=== PATIENT | male | born 1940 | race Caucasian/White ===

== ENCOUNTER 2018-05-06 15:55 | Emergency (ER) | payer MEDICARE, OTHER ==
[~2018-05-06] VITALS: Ht 182.9 cm; Wt 67.8 kg
[2018-05-06] MEDS ORDERED: morphine 4 MG/ML inj SYRINge IV ONE ×2 (16:15→18:25)
[2018-05-06] MEDS ORDERED: normal saline 1000ML IV soln IVB ONE ×2 (16:15→18:25)
[2018-05-06] MEDS ORDERED: ondansetron/PF 4mg/2ml inj IV ONE (16:15)
[2018-05-06 16:19] LABS: BASOPHILS % (AUTO) 0.3 % (0-1); EOSINOPHILS # (AUTO) 0.1 X10'3 (0-0.9); EOSINOPHILS % (AUTO) 1.4 % (0-6); HEMATOCRIT 41.9 % (42.0-52.0); HEMOGLOBIN 13.9 g/dl (14.0-17.9); LYMPHOCYTES # (AUTO) 1.3 X10'3 (1.1-4.8); LYMPHOCYTES % (AUTO) 12.9 % (21-51); MEAN CORPUSCULAR HEMOGLOBIN 28.2 PG (27.0-31.0); MEAN CORPUSCULAR HGB CONC 33.2 % (33.0-36.5); MEAN CORPUSCULAR VOLUME 85.1 FL (78-98); MEAN PLATELET VOLUME 6.6 FL (7.4-10.4); MONOCYTES # (AUTO) 0.9 X10'3 (0-0.9); MONOCYTES % (AUTO) 9.1 % (2-12); NEUTROPHILS # (AUTO) 7.8 X10'3 (1.8-7.7); NEUTROPHILS % (AUTO) 76.3 % (42-75); PLATELET COUNT 230 X10'3 (140-440); RED BLOOD COUNT 4.92 X10'6 (4.70-6.10); RED CELL DISTRIBUTION WIDTH 14.2 % (11.5-14.5); WHITE BLOOD COUNT 10.2 X10'3 (4.5-11.0)
[2018-05-06 16:32] LABS: PROTHROMBIN TIME 9.9 SECONDS (9.0-12.0)
[2018-05-06 16:33] LABS: ALANINE AMINOTRANSFERASE 34 U/L (12-78); ALBUMIN 3.7 G/DL (3.4-5.0); ALBUMIN/GLOBULIN RATIO 1.1 (1.1-1.5); ALKALINE PHOSPHATASE 88 IU/L (46-116); ANION GAP 10 (8-16); ASPARTATE AMINO TRANSFERASE 20 U/L (10-37); BILIRUBIN,TOTAL 0.6 MG/DL (0.1-1.0); BLOOD UREA NITROGEN 21 MG/DL (7-18); BUN/CREATININE RATIO 11.9 (5.4-32.0); CALCIUM 8.8 MG/DL (8.5-10.1); CHLORIDE 105 MMOL/L (99-107); CREATININE 1.77 MG/DL (0.60-1.10); GLUCOSE 85 MG/DL (70-104); LIPASE 63 U/L (73-393); POTASSIUM 3.9 MMOL/L (3.5-5.1); SODIUM 142 MMOL/L (135-145); TOTAL CARBON DIOXIDE 26.6 MMOL/L (24-32); TOTAL PROTEIN 7.1 G/DL (6.4-8.2); eGFR 37 ML/MIN
[2018-05-06 18:18] LABS: CLARITY,URINE CLEAR (Clear); COLOR,URINE YELLOW (Yellow); GLUCOSE, URINE NEGATIVE (Neg); KETONES,URINE 15 mg/dl (Neg); LEUKOCYTE ESTERASE ,URINE NEGATIVE (Neg); NITRITES, URINE NEGATIVE (Neg); OCCULT BLOOD,URINE TRACE-INTACT (Neg); PROTEIN,URINE NEGATIVE (Neg); UROBILINOGEN,URINE 0.2 E.U/dL (0.2-1.0)
[2018-05-06 18:26] LABS: UA COLLECTION TYPE CLN CATCH MIDSTREAM
[2018-05-06 18:27] LABS: BACTERIA,URINE FEW /HPF (Neg); RBC,URINE 0-2 /HPF (0-2); SQUAMOUS EPITHELIAL CELL,UR FEW /LPF (FEW); WBC,URINE NONE SEEN /HPF (0-4)
[2018-05-06] MEDS ORDERED: HYDR-4353 PO (20:04)
[2018-05-06 20:24] VITALS: BP 132/65
== END 2018-05-06 20:25 | disposition home or self-care (01) ==
LOC: ER 15:55
DX: N20.0 Calculus of kidney (principal); R11.2 Nausea with vomiting, unspecified; E78.00 Pure hypercholesterolemia, unspecified; I10 Essential (primary) hypertension; G89.29 Other chronic pain; Z87.442 Personal history of urinary calculi
CPT/HCPCS: 36415; 74176; 80053; 81001; 83690; 85025; 85610; 96361; 96374; 96375; 96376; 99284; J2270; J2405; J7030

== ENCOUNTER 2018-06-03 19:53 | Emergency (ER) | payer MEDICARE, OTHER ==
[~2018-06-03] VITALS: Ht 182.9 cm; Wt 89.0 kg
[~2018-06-03 19:53] MED LIST: HYDR-4353 PO
[2018-06-03 20:35] LABS: CLARITY,URINE CLEAR (Clear); COLOR,URINE YELLOW (Yellow); GLUCOSE, URINE NEGATIVE (Neg); KETONES,URINE 15 mg/dl (Neg); NITRITES, URINE NEGATIVE (Neg); OCCULT BLOOD,URINE SMALL (Neg); PH,URINE 5.5 (4.8-8.0); PROTEIN,URINE TRACE mg/dl (Neg); UA COLLECTION TYPE CLN CATCH MIDSTREAM; UROBILINOGEN,URINE 0.2 E.U/dL (0.2-1.0)
[2018-06-03 20:36] LABS: LEUKOCYTE ESTERASE ,URINE NEGATIVE (Neg)
[2018-06-03 20:37] LABS: BACTERIA,URINE NONE SEEN /HPF (Neg); RBC,URINE 0-2 /HPF (0-2); SQUAMOUS EPITHELIAL CELL,UR FEW /LPF (FEW); WBC,URINE 0-4 /HPF (0-4)
[2018-06-03] MEDS ORDERED: ondansetron/PF 4mg/2ml inj IV ONE ×2 (20:45→22:20)
[2018-06-03] MEDS ORDERED: normal saline 1000ML IV soln IVB ONE ×2 (20:45→22:20)
[2018-06-03] MEDS ORDERED: ketorolac trometh. 30mg/ml inj. IV ONE (20:45)
[2018-06-03] MEDS ORDERED: morphine 4 MG/ML inj SYRINge IV PRN (20:45)
[2018-06-03 20:50] LABS: BASOPHILS % (AUTO) 0.4 % (0-1); EOSINOPHILS # (AUTO) 0.1 X10'3 (0-0.9); EOSINOPHILS % (AUTO) 0.7 % (0-6); HEMATOCRIT 41.6 % (42.0-52.0); HEMOGLOBIN 13.7 g/dl (14.0-17.9); LYMPHOCYTES # (AUTO) 0.9 X10'3 (1.1-4.8); LYMPHOCYTES % (AUTO) 10.5 % (21-51); MEAN CORPUSCULAR HEMOGLOBIN 28.1 PG (27.0-31.0); MEAN CORPUSCULAR HGB CONC 32.9 % (33.0-36.5); MEAN CORPUSCULAR VOLUME 85.5 FL (78-98); MEAN PLATELET VOLUME 6.6 FL (7.4-10.4); MONOCYTES # (AUTO) 0.7 X10'3 (0-0.9); MONOCYTES % (AUTO) 8.3 % (2-12); NEUTROPHILS # (AUTO) 7.3 X10'3 (1.8-7.7); NEUTROPHILS % (AUTO) 80.1 % (42-75); PLATELET COUNT 205 X10'3 (140-440); RED BLOOD COUNT 4.87 X10'6 (4.70-6.10); RED CELL DISTRIBUTION WIDTH 12.9 % (11.5-14.5)
[2018-06-03 20:58] LABS: ALANINE AMINOTRANSFERASE 37 U/L (12-78); ALBUMIN 3.7 G/DL (3.4-5.0); ALBUMIN/GLOBULIN RATIO 1.1 (1.1-1.5); ALKALINE PHOSPHATASE 91 IU/L (46-116); ANION GAP 12 (8-16); ASPARTATE AMINO TRANSFERASE 19 U/L (10-37); BLOOD UREA NITROGEN 19 MG/DL (7-18); BUN/CREATININE RATIO 11.4 (5.4-32.0); CALCIUM 8.5 MG/DL (8.5-10.1); CHLORIDE 103 MMOL/L (99-107); CREATININE 1.66 MG/DL (0.60-1.10); GLUCOSE 120 MG/DL (70-104); LIPASE 277 U/L (73-393); SODIUM 141 MMOL/L (135-145); TOTAL CARBON DIOXIDE 26.5 MMOL/L (24-32); TOTAL PROTEIN 7.2 G/DL (6.4-8.2); eGFR 40 ML/MIN
[2018-06-03] MEDS: morphine 10mg/ml inj. IV PRN ×2 (21:05→23:39)
[2018-06-03 21:14] LABS: PROTHROMBIN TIME 10.1 SECONDS (9.0-12.0)
--- NOTE | 2018-06-03 21:38 | NUR ---
Patient is A&O x4, HERNÁNDEZ and is appropriate and is HH. He has a history of kidneystones, but has not been able to have a procedure due to blood thinners.
[2018-06-03] MEDS ORDERED: methylnaltrexone br 12mg/0.6ml inj***SubQ only SQ ONE (21:50)
[2018-06-03] MEDS ORDERED: morphine 10mg/ml inj. IV ONE (22:20)
--- NOTE | 2018-06-03 23:55 | NUR ---
Patient is nauseous and dry heaving, I just gave him Zofran 4mg. I will continue to monitor.
[2018-06-04] MEDS: morphine 10mg/ml inj. IV PRN (00:21)
[2018-06-04 00:49] VITALS: BP 146/75
== END 2018-06-04 00:52 | disposition home or self-care (01) ==
LOC: ER 19:54
DX: N20.0 Calculus of kidney (principal); N23 Unspecified renal colic; E78.00 Pure hypercholesterolemia, unspecified; G89.29 Other chronic pain; R11.2 Nausea with vomiting, unspecified; I12.9 Hypertensive chronic kidney disease with stage 1 through stage 4 chronic kidney disease, or unspecified chronic kidney disease; N18.9 Chronic kidney disease, unspecified; Z95.5 Presence of coronary angioplasty implant and graft; Z98.890 Other specified postprocedural states; Z88.1 Allergy status to other antibiotic agents
CPT/HCPCS: 36415; 74018; 76775; 80053; 81001; 83690; 85025; 85610; 96361; 96372; 96374; 96375; 96376; 99284; J1885; J2270; J2405; J7030

== ENCOUNTER 2019-10-09 12:49 | Outpatient (CLI) | payer MEDICARE, OTHER | END 2019-10-09 23:59 | disposition home or self-care (01) | LOC: RAD 12:49 | PROVIDERS: ATTEND Dietitian, Registered | DX: I10 Essential (primary) hypertension (principal); E78.5 Hyperlipidemia, unspecified; R13.10 Dysphagia, unspecified | CPT/HCPCS: 74230 ==

== ENCOUNTER 2020-06-30 22:31 | Observation (INO) | payer MEDICARE, OTHER ==
[~2020-06-30] VITALS: Ht 182.9 cm; Wt 86.4 kg
[~2020-06-30 22:31] MED LIST changes: +ACET-2319 PO; +AMLO10TA48 PO; +FAMO40TA58 PO; -HYDR-4353 PO; +IRON118L2 PO; +LOSA50TA64 PO; +MULT-687 PO; +NITR0.4T51 SL; +PANT40TA54 PO; +ROSU10TA2 PO; +SILD50TA PO; +TEST5GEL2 TOP; +TRAZ-251 PO; +temazepam 15mg capsule PO PRN
[2020-06-30 22:46] LABS: BASOPHILS # (AUTO) 0.1 X10'3 (0-0.2); BASOPHILS % (AUTO) 1.2 % (0-1); EOSINOPHILS # (AUTO) 0.2 X10'3 (0-0.9); EOSINOPHILS % (AUTO) 2.6 % (0-6); HEMATOCRIT 34.6 % (42.0-52.0); HEMOGLOBIN 11.7 g/dl (14.0-17.9); LYMPHOCYTES # (AUTO) 1.8 X10'3 (1.1-4.8); MEAN CORPUSCULAR HEMOGLOBIN 28.8 PG (27.0-31.0); MEAN CORPUSCULAR HGB CONC 33.9 g/dL (33.0-36.5); MEAN PLATELET VOLUME 6.6 FL (7.4-10.4); MONOCYTES # (AUTO) 0.7 X10'3 (0-0.9); MONOCYTES % (AUTO) 10.3 % (2-12); NEUTROPHILS # (AUTO) 4.4 X10'3 (1.8-7.7); NEUTROPHILS % (AUTO) 60.9 % (42-75); PLATELET COUNT 203 X10'3 (140-440); RED BLOOD COUNT 4.07 X10'6 (4.70-6.10); RED CELL DISTRIBUTION WIDTH 13.7 % (11.5-14.5); WHITE BLOOD COUNT 7.1 X10'3 (4.5-11.0)
[2020-06-30] MEDS ORDERED: fentaNYL/PF 50MCG/1 ML 2ML syringe IV ONE (22:55)
[2020-06-30 23:01] LABS: ALANINE AMINOTRANSFERASE 32 U/L (12-78); ALBUMIN 3.6 G/DL (3.4-5.0); ALBUMIN/GLOBULIN RATIO 1.2 (1.1-1.5); ALKALINE PHOSPHATASE 75 IU/L (46-116); ANION GAP 8 (8-16); ASPARTATE AMINO TRANSFERASE 15 U/L (10-37); BILIRUBIN,TOTAL 0.4 MG/DL (0.1-1.0); BLOOD UREA NITROGEN 22 MG/DL (7-18); BUN/CREATININE RATIO 11.8 (5.4-32.0); CALCIUM 8.5 MG/DL (8.5-10.1); CHLORIDE 110 MMOL/L (99-107); CREATININE 1.86 MG/DL (0.60-1.10); GLUCOSE 103 MG/DL (70-104); SODIUM 144 MMOL/L (135-145); TOTAL CARBON DIOXIDE 26.2 MMOL/L (24-32); TOTAL PROTEIN 6.7 G/DL (6.4-8.2); eGFR 35 ML/MIN
--- NOTE | 2020-06-30 23:15 | NUR ---
PT TO CT
[2020-06-30] MEDS ORDERED: PANT-47 PO (23:26)
[2020-06-30] MEDS ORDERED: TEST1.257 TOP (23:26)
[2020-06-30] MEDS ORDERED: [UNRECOGNIZED DRUG - CODE] PO (23:26)
[2020-06-30] MEDS ORDERED: CLOP75TA34 PO (23:26)
[2020-06-30] MEDS ORDERED: BIFI4CAP PO (23:26)
[2020-06-30] MEDS ORDERED: LOSA50TA64 PO (23:26)
[2020-06-30] MEDS ORDERED: ASPI-611 PO (23:26)
--- NOTE | 2020-06-30 23:27 | NUR ---
Pt back from ct
[2020-06-30] MEDS ORDERED: acetaminophen 325mg tablet PO PRN ×2 (23:40)
[2020-06-30] MEDS ORDERED: mag hydrox/Alum hydrox/simeth 30ml oral suspension PO PRN (23:40)
[2020-06-30] MEDS ORDERED: magnesium hydroxide 30ml (MOM) UD suspension PO PRN (23:40)
[2020-06-30] MEDS ORDERED: potassium Cl 20 mEq SR tablet PO PRN ×2 (23:40)
[2020-06-30] MEDS ORDERED: nitroGLYCERIN 0.4mg SUBLingual tab SL PRN ×2 (23:40)
[2020-06-30] MEDS ORDERED: metoprolol tartrate 1mg/ml inj IV PRN (23:40)
[2020-06-30] MEDS ORDERED: magnesium 4gm in 100ml NS 100 ML IV PRN (23:40)
[2020-06-30] MEDS ORDERED: magnesium Cl slow-release 64mg tablet PO PRN (23:40)
[2020-06-30] MEDS ORDERED: potassium Cl 40MEQ/1/2NS 520ml 520 ML IV PRN ×2 (23:40)
[2020-06-30] MEDS ORDERED: aminophylline 250mg/10ml inj. IV PRN (23:40)
[2020-06-30] MEDS ORDERED: bisacodyl 10mg suppository rectal RC PRN (23:40)
[2020-06-30] MEDS ORDERED: HYDROcodone/acetaminophen 10/325mg tab PO PRN (23:40)
[2020-06-30] MEDS ORDERED: ondansetron/PF 4mg/2ml inj IV PRN (23:40)
[2020-06-30] MEDS ORDERED: magnesium 2GM in 50ml NS 50 ML IV PRN (23:40)
[2020-06-30] MEDS ORDERED: regadenoson 0.4mg/5ml syringe IV PRN (23:40)
[2020-06-30] MEDS ORDERED: morphine 2 MG/ML inj. syringe IV PRN ×2 (23:40)
[2020-06-30] MEDS ORDERED: HYDROcodone/acetaminophen 5mg/325mg tablet PO PRN (23:40)
[2020-07-01] MEDS ORDERED: fentaNYL/PF 50MCG/1 ML 2ML syringe IV ONE
[2020-07-01] MEDS: normal saline 1000ml 1,000 ML IV SCH ×2 (00:01→07:29)
[2020-07-01] MEDS ORDERED: nitroGLYCERIN 0.4mg SUBLingual tab SL PRN (02:10)
[2020-07-01 04:44] LABS: ALBUMIN 3.2 G/DL (3.4-5.0); ANION GAP 9 (8-16); BLOOD UREA NITROGEN 23 MG/DL (7-18); BUN/CREATININE RATIO 13.9 (5.4-32.0); CALCIUM 7.6 MG/DL (8.5-10.1); CHLORIDE 113 MMOL/L (99-107); CHOL/HDL RATIO 2.5 (0.00-4.99); CHOLESTEROL 121 MG/DL (0-200); CREATININE 1.66 MG/DL (0.60-1.10); GLUCOSE 90 MG/DL (70-104); HDL CHOLESTEROL 49 MG/DL (35-60); LDL CHOLESTEROL 61 MG/DL (50-100); MAGNESIUM 2.1 MG/DL (1.5-2.4); SODIUM 146 MMOL/L (135-145); TOTAL CARBON DIOXIDE 24.5 MMOL/L (24-32); TRIGLYCERIDES 55 MG/DL (20-135); eGFR 40 ML/MIN
--- NOTE | 2020-07-01 06:49 | NUR ---
patient on bed awake,denies chest pain at this time,call light within reach,appears comfortable on a hospital bed.Vital signs rechecked.We will monitor.
--- NOTE | 2020-07-01 07:29 | NUR ---
PATIENT REFUSED TO TAKE ALL MORNING MEDS,REPORTS HE TAKES EVERYTHING AT NIGHT,CALLED PHARMACIST ALESIA AND REQUESTED TO RETIME MEDS.
[2020-07-01] MEDS ORDERED: pantoprazole 40mg Tablet.DR PO SCH (08:00)
[2020-07-01] MEDS ORDERED: enoxaparin 40mg/0.4ml syringe SUBCUT SCH (08:00)
[2020-07-01] MEDS ORDERED: clopidogrel 75mg tablet PO SCH ×2 (08:00→21:00)
[2020-07-01] MEDS ORDERED: losartan 50mg tablet PO SCH (08:00)
[2020-07-01] MEDS ORDERED: aspirin 81mg tablet.DR PO SCH ×2 (08:00→21:00)
[2020-07-01] MEDS ORDERED: K and/or MAG REPLACEMENT MC SCH (08:00)
[2020-07-01 10:59] LABS: HEMATOCRIT 35.5 % (42.0-52.0); HEMOGLOBIN 11.8 g/dl (14.0-17.9); MEAN CORPUSCULAR HEMOGLOBIN 28.7 PG (27.0-31.0); MEAN CORPUSCULAR HGB CONC 33.3 g/dL (33.0-36.5); MEAN CORPUSCULAR VOLUME 86.2 FL (78-98); MEAN PLATELET VOLUME 6.7 FL (7.4-10.4); PLATELET COUNT 193 X10'3 (140-440); RED BLOOD COUNT 4.12 X10'6 (4.70-6.10); RED CELL DISTRIBUTION WIDTH 13.7 % (11.5-14.5); WHITE BLOOD COUNT 6.8 X10'3 (4.5-11.0)
--- NOTE | 2020-07-01 11:17 | NUR ---
called nuc med stress test cancelled last night.
--- NOTE | 2020-07-01 14:50 | NUR ---
Dr. Michael at bedside,ordered to gait test patient for possible dc.
--- NOTE | 2020-07-01 15:01 | NUR ---
Patient passed gait test 150 feet,95% RA,demetria salas,paged Dr. Michael.
--- NOTE | 2020-07-01 16:00 | NUR ---
DISCHARGE ROUTINE NOTED,DC PAPER PRINTED.
[2020-07-01 16:11] VITALS: BP 137/63
[2020-07-01] MEDS ORDERED: traZODone 50mg tablet PO SCH (21:00)
[2020-07-01] MEDS ORDERED: amLODIPine 5mg tablet PO SCH (21:00)
[2020-07-01] MEDS ORDERED: atorvastatin 20mg tablet PO SCH (21:00)
== END 2020-07-01 16:12 | disposition home or self-care (01) ==
LOC: ER 22:32 → UNDOADMIN 23:40 → ED HOLD 23:40 → UNDODISIN 07-01 16:12
PROVIDERS: ADMIT Family Medicine; ATTEND Family Medicine
DX: R07.89 Other chest pain (principal); I25.10 Atherosclerotic heart disease of native coronary artery without angina pectoris; I12.9 Hypertensive chronic kidney disease with stage 1 through stage 4 chronic kidney disease, or unspecified chronic kidney disease; N18.30 Chronic kidney disease, stage 3 unspecified; E78.5 Hyperlipidemia, unspecified; N20.0 Calculus of kidney; E78.00 Pure hypercholesterolemia, unspecified; G89.29 Other chronic pain; K21.9 Gastro-esophageal reflux disease without esophagitis; Z85.038 Personal history of other malignant neoplasm of large intestine; Z95.5 Presence of coronary angioplasty implant and graft; Z90.49 Acquired absence of other specified parts of digestive tract; Z79.82 Long term (current) use of aspirin; Z79.899 Other long term (current) drug therapy; Z88.1 Allergy status to other antibiotic agents
CPT/HCPCS: 36415; 71045; 71046; 71250; 80048; 80053; 80061; 83735; 83880; 84484; 85025; 85027; 93005; 96361; 96372; 96374; 99285; G0378; J2270; J7030; J1650

== ENCOUNTER 2021-10-29 07:55 | Day surgery (SDC) | payer MEDICARE, OTHER ==
[2021-10-29] VITALS (9 sets, daily range): BP systolic 115–149; BP diastolic 51–82
[~2021-10-29] VITALS: Ht 182.9 cm; Wt 87.9 kg
[~2021-10-29 07:55] MED LIST changes: -ACET-2319 PO; +ASPI-611 PO; +BIFI4CAP PO; +CLOP75TA34 PO; -FAMO40TA58 PO; -IRON118L2 PO; +PANT-47 PO; -PANT40TA54 PO; +TEST1.257 TOP; +[UNRECOGNIZED DRUG - CODE] PO; -temazepam 15mg capsule PO PRN
[2021-10-29] MEDS ORDERED: normal saline 1,000 ML IV SCH (08:30)
[2021-10-29] MEDS ORDERED: diphenhydrAMINE 25mg capsule PO PRN (08:30)
[2021-10-29] MEDS ORDERED: ROSU40TA PO (09:04)
[2021-10-29 09:08] LABS: BASOPHILS # (AUTO) 0.1 X10'3 (0-0.2); BASOPHILS % (AUTO) 1.1 % (0-1); EOSINOPHILS # (AUTO) 0.1 X10'3 (0-0.9); EOSINOPHILS % (AUTO) 1.6 % (0-6); HEMATOCRIT 35.4 % (42.0-52.0); HEMOGLOBIN 11.9 g/dl (14.0-17.9); LYMPHOCYTES # (AUTO) 1.2 X10'3 (1.1-4.8); LYMPHOCYTES % (AUTO) 20.6 % (21-51); MEAN CORPUSCULAR HEMOGLOBIN 28.1 PG (27.0-31.0); MEAN CORPUSCULAR HGB CONC 33.7 g/dL (33.0-36.5); MEAN CORPUSCULAR VOLUME 83.4 FL (78-98); MEAN PLATELET VOLUME 6.7 FL (7.4-10.4); MONOCYTES # (AUTO) 0.5 X10'3 (0-0.9); MONOCYTES % (AUTO) 8.1 % (2-12); NEUTROPHILS # (AUTO) 4.1 X10'3 (1.8-7.7); NEUTROPHILS % (AUTO) 68.6 % (42-75); PLATELET COUNT 241 X10'3 (140-440); RED BLOOD COUNT 4.24 X10'6 (4.70-6.10); RED CELL DISTRIBUTION WIDTH 13.5 % (11.5-14.5)
[2021-10-29 09:22] LABS: ALBUMIN 3.7 G/DL (3.4-5.0); ANION GAP 10 (8-16); BLOOD UREA NITROGEN 23 MG/DL (7-18); BUN/CREATININE RATIO 12.8 (5.4-32.0); CALCIUM 8.6 MG/DL (8.5-10.1); CHLORIDE 106 MMOL/L (99-107); GLUCOSE 97 MG/DL (70-104); MAGNESIUM 2.4 MG/DL (1.5-2.4); POTASSIUM 4.7 MMOL/L (3.5-5.1); SODIUM 141 MMOL/L (135-145); TOTAL CARBON DIOXIDE 25.3 MMOL/L (24-32); eGFR 36 ML/MIN
[2021-10-29] MEDS ORDERED: verapamil 2.5 mg/ml inj IV ONE (09:25)
[2021-10-29] MEDS ORDERED: nitroGLYCERIN-Tridil 50MG/D5W 250 ML IV ONE (09:25)
[2021-10-29] MEDS ORDERED: LIDOcaine 1% 30ml preserv. free vial ONE (09:26)
[2021-10-29] MEDS ORDERED: midazolam 1 mg/ML 2ml injection ONE (09:26)
[2021-10-29] MEDS ORDERED: fentaNYL/PF 50MCG/1 ML 2ML syringe ONE (09:26)
[2021-10-29] MEDS ORDERED: heparin 1,000unit/ml 10ml vial 10 ML ONE (09:26)
[2021-10-29] MEDS ORDERED: iohexol 350 MG/ML 50ML vial IV ONE ×2 (10:56→12:32)
[2021-10-29] MEDS ORDERED: IOHEXOL 350 MG/ML INFUS..BTL 125ML IV ONE (10:57)
[2021-10-29] MEDS ORDERED: clopidogrel 300mg tablet ONE (11:18)
[2021-10-29] MEDS ORDERED: normal saline 1000ml 1,000 ML IV SCH (11:40)
[2021-10-29] MEDS ORDERED: ondansetron/PF 4mg/2ml inj IV PRN (11:40)
[2021-10-29] MEDS ORDERED: HYDROcodone/acetaminophen 10/325mg tab PO PRN (11:45)
[2021-10-29] MEDS ORDERED: proCHLORperazine 10 MG/2 ml inj IV PRN (11:45)
[2021-10-29] MEDS ORDERED: HYDROcodone/acetaminophen 5mg/325mg tablet PO PRN (11:45)
[2021-10-29] MEDS ORDERED: OXAZEpam 15mg capsule PO PRN (11:45)
== END 2021-10-29 15:11 | disposition home or self-care (01) ==
LOC: SSTAY O 07:55
PROVIDERS: ATTEND Internal Medicine Cardiovascular Disease
DX: R07.89 Other chest pain (principal); I25.119 Atherosclerotic heart disease of native coronary artery with unspecified angina pectoris; E78.5 Hyperlipidemia, unspecified; I10 Essential (primary) hypertension; Z87.891 Personal history of nicotine dependence; Z88.1 Allergy status to other antibiotic agents; Z79.899 Other long term (current) drug therapy
CPT/HCPCS: 36415; 80048; 83735; 85025; 85610; 93458; 99152; 99153; C1725; C1751; C1769; C1874; C1894; C9600; J1644; J2250; J3010; J3490; J7030; Q0163; Q9967; A4620; A5120; A6258

== ENCOUNTER 2021-10-30 07:43 | Emergency (ER) | payer MEDICARE, OTHER ==
[~2021-10-30] VITALS: Ht 182.9 cm; Wt 86.4 kg
[~2021-10-30 07:43] MED LIST changes: -ASPI-611 PO; -ROSU10TA2 PO; +ROSU40TA PO; -SILD50TA PO; -[UNRECOGNIZED DRUG - CODE] PO
--- NOTE | 2021-10-30 08:25 | NUR ---
DR NELSON IN ROOM 19 WITH THE PT.
[2021-10-30 09:00] LABS: BASOPHILS % (AUTO) 0.8 % (0-1); EOSINOPHILS # (AUTO) 0.1 X10'3 (0-0.9); EOSINOPHILS % (AUTO) 1.6 % (0-6); HEMOGLOBIN 12.8 g/dl (14.0-17.9); MEAN CORPUSCULAR HEMOGLOBIN 27.3 PG (27.0-31.0); MEAN CORPUSCULAR HGB CONC 32.7 g/dL (33.0-36.5); MEAN CORPUSCULAR VOLUME 83.6 FL (78-98); MEAN PLATELET VOLUME 6.6 FL (7.4-10.4); MONOCYTES # (AUTO) 0.5 X10'3 (0-0.9); MONOCYTES % (AUTO) 7.8 % (2-12); NEUTROPHILS # (AUTO) 4.4 X10'3 (1.8-7.7); NEUTROPHILS % (AUTO) 72.8 % (42-75); PLATELET COUNT 246 X10'3 (140-440); RED BLOOD COUNT 4.67 X10'6 (4.70-6.10); RED CELL DISTRIBUTION WIDTH 13.8 % (11.5-14.5)
[2021-10-30 09:17] LABS: ALANINE AMINOTRANSFERASE 33 U/L (12-78); ALBUMIN 3.9 G/DL (3.4-5.0); ALBUMIN/GLOBULIN RATIO 1.1 (1.1-1.5); ALKALINE PHOSPHATASE 97 IU/L (46-116); ANION GAP 8 (8-16); ASPARTATE AMINO TRANSFERASE 31 U/L (10-37); BILIRUBIN,TOTAL 0.7 MG/DL (0.1-1.0); BLOOD UREA NITROGEN 20 MG/DL (7-18); BUN/CREATININE RATIO 10.5 (5.4-32.0); CHLORIDE 105 MMOL/L (99-107); GLUCOSE 102 MG/DL (70-104); POTASSIUM 4.2 MMOL/L (3.5-5.1); SODIUM 140 MMOL/L (135-145); TOTAL CARBON DIOXIDE 27.4 MMOL/L (24-32); TOTAL PROTEIN 7.3 G/DL (6.4-8.2); eGFR 34 ML/MIN
[2021-10-30 11:14] VITALS: BP 120/63
== END 2021-10-30 11:10 | disposition home or self-care (01) ==
LOC: ER 07:43
DX: R07.89 Other chest pain (principal); E78.00 Pure hypercholesterolemia, unspecified; I10 Essential (primary) hypertension; G89.29 Other chronic pain; Z87.442 Personal history of urinary calculi; Z98.890 Other specified postprocedural states; Z88.1 Allergy status to other antibiotic agents; Z79.899 Other long term (current) drug therapy
CPT/HCPCS: 36415; 71045; 80053; 83880; 84484; 85025; 93005; 99285

== ENCOUNTER 2021-11-19 12:36 | Day surgery (SDC) | payer MEDICARE, OTHER ==
[~2021-11-19] VITALS: Ht 182.9 cm; Wt 88.0 kg
[2021-11-19] VITALS (9 sets, daily range): BP systolic 117–150; BP diastolic 59–81
[2021-11-19] MEDS ORDERED: diphenhydrAMINE 25mg capsule PO PRN (13:05)
[2021-11-19] MEDS ORDERED: normal saline 1,000 ML IV SCH (13:05)
[2021-11-19 13:58] LABS: BASOPHILS # (AUTO) 0.1 X10'3 (0-0.2); EOSINOPHILS # (AUTO) 0.1 X10'3 (0-0.9); EOSINOPHILS % (AUTO) 2.1 % (0-6); HEMOGLOBIN 13.2 g/dl (14.0-17.9); LYMPHOCYTES # (AUTO) 1.3 X10'3 (1.1-4.8); LYMPHOCYTES % (AUTO) 24.6 % (21-51); MEAN CORPUSCULAR HEMOGLOBIN 27.7 PG (27.0-31.0); MEAN CORPUSCULAR VOLUME 83.9 FL (78-98); MONOCYTES # (AUTO) 0.4 X10'3 (0-0.9); MONOCYTES % (AUTO) 7.5 % (2-12); NEUTROPHILS # (AUTO) 3.5 X10'3 (1.8-7.7); NEUTROPHILS % (AUTO) 64.8 % (42-75); PLATELET COUNT 176 X10'3 (140-440); RED BLOOD COUNT 4.76 X10'6 (4.70-6.10); WHITE BLOOD COUNT 5.4 X10'3 (4.5-11.0)
[2021-11-19 14:19] LABS: ALBUMIN 4.5 G/DL (3.4-5.0); ANION GAP 10 (8-16); BLOOD UREA NITROGEN 19 MG/DL (7-18); BUN/CREATININE RATIO 9.9 (5.4-32.0); CALCIUM 9.1 MG/DL (8.5-10.1); CHLORIDE 105 MMOL/L (99-107); CREATININE 1.92 MG/DL (0.60-1.10); GLUCOSE 94 MG/DL (70-104); MAGNESIUM 2.4 MG/DL (1.5-2.4); POTASSIUM 4.2 MMOL/L (3.5-5.1); SODIUM 141 MMOL/L (135-145); TOTAL CARBON DIOXIDE 26.2 MMOL/L (24-32); eGFR 34 ML/MIN
[2021-11-19] MEDS ORDERED: iohexol 350MG/ML 100ml bottle IV ONE ×2 (15:21→16:13)
[2021-11-19] MEDS ORDERED: midazolam 1 mg/ML 2ml injection ONE ×3 (15:21→16:48)
[2021-11-19] MEDS ORDERED: fentaNYL/PF 50MCG/1 ML 2ML syringe ONE (15:21)
[2021-11-19] MEDS ORDERED: heparin 1,000unit/ml 10ml vial 10 ML ONE (15:21)
--- NOTE | 2021-11-19 16:00 | NUR ---
Received report from Álvaro ARIAS. Assumed patient care. Patient resting comfortably waiting for union laborer.
[2021-11-19] MEDS ORDERED: verapamil 2.5 mg/ml inj IV ONE (16:13)
[2021-11-19] MEDS ORDERED: nitroGLYCERIN-Tridil 50MG/D5W 250 ML IV ONE (16:13)
[2021-11-19] MEDS ORDERED: sodium bicarbonate (8.4%) inj. 150 ML in dextrose 5%-water 1,000 ML IV ONE (16:25)
[2021-11-19] MEDS ORDERED: HYDROcodone/acetaminophen 5mg/325mg tablet PO PRN (18:10)
[2021-11-19] MEDS ORDERED: ondansetron/PF 4mg/2ml inj IV PRN (18:10)
[2021-11-19] MEDS ORDERED: proCHLORperazine 10 MG/2 ml inj IV PRN (18:10)
[2021-11-19] MEDS ORDERED: HYDROcodone/acetaminophen 10/325mg tab PO PRN (18:10)
[2021-11-19] MEDS ORDERED: normal saline 1000ml 1,000 ML IV SCH (18:10)
== END 2021-11-19 20:35 | disposition home or self-care (01) ==
LOC: SSTAY O 12:36
PROVIDERS: ATTEND Internal Medicine Cardiovascular Disease
DX: R07.89 Other chest pain (principal); R06.02 Shortness of breath; I25.10 Atherosclerotic heart disease of native coronary artery without angina pectoris; I25.5 Ischemic cardiomyopathy; E78.5 Hyperlipidemia, unspecified; I12.9 Hypertensive chronic kidney disease with stage 1 through stage 4 chronic kidney disease, or unspecified chronic kidney disease; N18.9 Chronic kidney disease, unspecified; D64.9 Anemia, unspecified; Z87.891 Personal history of nicotine dependence; Z79.899 Other long term (current) drug therapy
CPT/HCPCS: 36415; 80048; 83735; 85025; 85610; 93454; 99152; 99153; C1760; C1769; C1894; J1644; J2250; J3010; J3490; J7030; J7070; Q9967; A4620; A5120

== ENCOUNTER 2023-02-10 07:43 | Day surgery (SDC) | payer MEDICARE, OTHER ==
[2023-02-10] VITALS (10 sets, daily range): BP systolic 110–129; BP diastolic 59–75; PULSE 60–84; RESP 12–18; TEMP 97.6; O2SAT 94–98
[~2023-02-10] VITALS: Ht 182.9 cm; Wt 89.2 kg
[~2023-02-10 07:43] MED LIST changes: -TEST1.257 TOP
[2023-02-10] MEDS ORDERED: diphenhydrAMINE 25mg capsule PO PRN (08:20)
[2023-02-10] MEDS ORDERED: normal saline 1,000 ML IV SCH (08:20)
[2023-02-10] MEDS ORDERED: CHOL4PAC PO (09:04)
[2023-02-10] MEDS ORDERED: DIPH-689 PO (09:04)
[2023-02-10 09:52] LABS: BASOPHILS # (AUTO) 0.1 X10'3 (0-0.2); BASOPHILS % (AUTO) 0.9 % (0-1); EOSINOPHILS # (AUTO) 0.1 X10'3 (0-0.9); HEMOGLOBIN 12.1 g/dl (14.0-17.9); LYMPHOCYTES # (AUTO) 1.2 X10'3 (1.1-4.8); LYMPHOCYTES % (AUTO) 20.3 % (21-51); MEAN CORPUSCULAR HGB CONC 32.8 g/dL (33.0-36.5); MEAN CORPUSCULAR VOLUME 85.4 FL (78-98); MEAN PLATELET VOLUME 6.8 FL (7.4-10.4); MONOCYTES # (AUTO) 0.5 X10'3 (0-0.9); MONOCYTES % (AUTO) 7.7 % (2-12); NEUTROPHILS # (AUTO) 4.1 X10'3 (1.8-7.7); NEUTROPHILS % (AUTO) 69.1 % (42-75); PLATELET COUNT 200 X10'3 (140-440); RED BLOOD COUNT 4.33 X10'6 (4.70-6.10); RED CELL DISTRIBUTION WIDTH 14.8 % (11.5-14.5); WHITE BLOOD COUNT 5.9 X10'3 (4.5-11.0)
[2023-02-10 10:03] LABS: PROTHROMBIN TIME 10.7 SECONDS (9.0-12.0)
[2023-02-10 10:35] LABS: ALANINE AMINOTRANSFERASE 37 U/L (12-78); ALBUMIN 3.7 G/DL (3.4-5.0); ALBUMIN/GLOBULIN RATIO 1.3 (1.1-1.5); ALKALINE PHOSPHATASE 76 IU/L (46-116); ANION GAP 6 (8-16); ASPARTATE AMINO TRANSFERASE 33 U/L (10-37); BILIRUBIN,TOTAL 0.7 MG/DL (0.1-1.0); BLOOD UREA NITROGEN 20 MG/DL (7-18); BUN/CREATININE RATIO 10.8 (10.0-20.0); CALCIUM 8.7 MG/DL (8.5-10.1); CHLORIDE 109 MMOL/L (99-107); CHOL/HDL RATIO 2.3 (0.00-4.99); CHOLESTEROL 132 MG/DL (0-200); CREATININE 1.85 MG/DL (0.60-1.10); FERRITIN 72 NG/ML (26-388); GLUCOSE 96 MG/DL (70-104); HDL CHOLESTEROL 57 MG/DL (35-60); LDL CHOLESTEROL 53 MG/DL (50-100); MAGNESIUM 2.4 MG/DL (1.5-2.4); POTASSIUM 4.5 MMOL/L (3.5-5.1); SODIUM 141 MMOL/L (135-145); THYROID STIMULATING HORMONE 2.03 ulU/ml (0.34-4.50); TOTAL CARBON DIOXIDE 25.6 MMOL/L (24-32); TOTAL PROTEIN 6.6 G/DL (6.4-8.2); TRIGLYCERIDES 94 MG/DL (20-135); eCRCL 33 ML/MIN; eGFR 35 ML/MIN
[2023-02-10 10:57] LABS: PRO BRAIN NATRIURETIC PEPTIDE 298 PG/ML (0-450)
[2023-02-10] MEDS ORDERED: midazolam 1 mg/ML 2ml injection ONE ×3 (11:14→11:56)
[2023-02-10] MEDS ORDERED: fentaNYL/PF 50MCG/1 ML 2ML syringe ONE (11:14)
[2023-02-10] MEDS ORDERED: heparin 1,000unit/ml 10ml vial 0 ML ONE (11:14)
[2023-02-10] MEDS ORDERED: iohexol 350MG/ML 100ml bottle IV ONE (11:14)
[2023-02-10] MEDS ORDERED: verapamil 2.5 mg/ml inj IV ONE (11:14)
[2023-02-10] MEDS ORDERED: LIDOcaine 1% (10mg/ml) 2ml vial ONE (11:14)
[2023-02-10] MEDS ORDERED: LIDOcaine 1% (10mg/ml)w/preservative inj. 20ml MDV ONE (11:17)
[2023-02-10] MEDS ORDERED: iohexol 350 MG/ML 50ML vial IV ONE (11:24)
[2023-02-10] MEDS ORDERED: proCHLORperazine 10 MG/2 ml inj ONE (11:44)
[2023-02-10 11:51] LABS: % IRON SATURATION 16 % (11-46); IRON 56 UG/DL (53-167); TOTAL IRON BINDING CAPACITY 344 UG/DL (259-388)
[2023-02-10] MEDS ORDERED: HYDROcodone/acetaminophen 10/325mg tab PO PRN (12:40)
[2023-02-10] MEDS ORDERED: ondansetron/PF 4mg/2ml inj IV PRN (12:40)
[2023-02-10] MEDS ORDERED: proCHLORperazine 10 MG/2 ml inj IV PRN (12:40)
[2023-02-10] MEDS ORDERED: HYDROcodone/acetaminophen 5mg/325mg tablet PO PRN (12:40)
[2023-02-10] MEDS ORDERED: normal saline 1000ml 1,000 ML IV SCH (12:40)
== END 2023-02-10 15:35 | disposition home or self-care (01) ==
LOC: SSTAY O 07:43
PROVIDERS: ATTEND Internal Medicine Cardiovascular Disease
DX: I25.119 Atherosclerotic heart disease of native coronary artery with unspecified angina pectoris (principal); I44.0 Atrioventricular block, first degree; I27.20 Pulmonary hypertension, unspecified; I44.7 Left bundle-branch block, unspecified; E78.5 Hyperlipidemia, unspecified; I12.9 Hypertensive chronic kidney disease with stage 1 through stage 4 chronic kidney disease, or unspecified chronic kidney disease; N18.9 Chronic kidney disease, unspecified; D64.9 Anemia, unspecified; Z87.442 Personal history of urinary calculi; Z87.891 Personal history of nicotine dependence; Z95.5 Presence of coronary angioplasty implant and graft
CPT/HCPCS: 36415; 80053; 80061; 82728; 83540; 83550; 83735; 83880; 84443; 85025; 85610; 93005; 93458; 99152; 99153; J0780; J1644; J2250; J3010; J3490; J7030; Q0163; Q9967; A4314; A6258; C1725; C1760; C1894

== ENCOUNTER 2024-01-15 06:13 | Day surgery (SDC) | payer MEDICARE, OTHER ==
[~2024-01-15] VITALS: Ht 182.9 cm; Wt 88.6 kg
[2024-01-15] VITALS (15 sets, daily range): BP systolic 86–111; BP diastolic 46–61; PULSE 62–94; RESP 14–22; TEMP 97.7; O2SAT 92–97
[~2024-01-15 06:13] MED LIST changes: +AMLO-888 PO; -AMLO10TA48 PO; +CHOL4PAC PO; +DIPH-689 PO; -TRAZ-251 PO
[2024-01-15] MEDS ORDERED: clindamycin-Cleocin 900mg/D5W 50 ML IV ONE (07:00)
[2024-01-15 07:29] LABS: ALBUMIN 3.6 G/DL (3.4-5.0); ANION GAP 10 (8-16); BLOOD UREA NITROGEN 19 MG/DL (7-18); BUN/CREATININE RATIO 8.8 (10.0-20.0); CALCIUM 9.1 MG/DL (8.5-10.1); CHLORIDE 107 MMOL/L (99-107); CREATININE 2.16 MG/DL (0.60-1.10); GLUCOSE 96 MG/DL (70-104); MAGNESIUM 2.5 MG/DL (1.5-2.4); POTASSIUM 4.6 MMOL/L (3.5-5.1); SODIUM 140 MMOL/L (135-145); TOTAL CARBON DIOXIDE 22.6 MMOL/L (24-32); eCRCL 28 ML/MIN; eGFR 29 ML/MIN
[2024-01-15 07:30] LABS: PROTHROMBIN TIME 10.3 SECONDS (9.0-12.0)
[2024-01-15] MEDS: normal saline 1000ml 1,000 ML IV SCH (07:57)
[2024-01-15] MEDS: VANCOMYCIN 1,500MG in NS 300ml IVPB IV ONE (07:58)
[2024-01-15] MEDS ORDERED: EMPA10TA PO (08:41)
[2024-01-15] MEDS ORDERED: CARV3.122 PO (08:41)
[2024-01-15] MEDS ORDERED: DUTA0.5C40 PO (08:41)
[2024-01-15] MEDS ORDERED: MULT-1085 PO (08:41)
[2024-01-15] MEDS ORDERED: SACU1TAB PO (08:41)
[2024-01-15] MEDS ORDERED: ESZO1TAB13 PO (08:41)
[2024-01-15] MEDS ORDERED: ACET-864 PO (08:41)
[2024-01-15] MEDS ORDERED: Testosterone TOP (08:41)
[2024-01-15] MEDS ORDERED: FERR-39 PO (08:41)
[2024-01-15] MEDS ORDERED: midazolam 1 mg/ML 2ml injection ONE ×4 (08:51→11:12)
[2024-01-15] MEDS ORDERED: LIDOcaine 1% w/EPI 1:100,000 inj. MDV 50 ML VIAL ONE (08:51)
[2024-01-15] MEDS ORDERED: fentaNYL/PF 50MCG/1 ML 2ML syringe ONE ×2 (08:51→09:57)
[2024-01-15] MEDS ORDERED: iohexol 350 MG/ML 50ML vial IV ONE ×3 (08:51→10:51)
[2024-01-15] MEDS ORDERED: vancomycin 1,000mg inj ONE (08:51)
[2024-01-15] MEDS ORDERED: LIDOcaine 1% 30ml preserv. free vial ONE (09:22)
[2024-01-15] MEDS ORDERED: iohexol 350MG/ML 100ml bottle IV ONE (09:23)
[2024-01-15] MEDS ORDERED: heparin 1,000unit/ml 10ml vial 0 ML ONE (09:23)
[2024-01-15] MEDS ORDERED: diphenhydrAMINE 50 mg/ml inj ONE (09:41)
[2024-01-15] MEDS ORDERED: WATER IV SCH (10:05)
[2024-01-15] MEDS ORDERED: DEXTROSE 5% IV SCH (10:05)
[2024-01-15] MEDS ORDERED: SODIUM BICARBONATE IV SCH (10:05)
[2024-01-15 10:53] LABS: HEMATOCRIT 36.5 % (43.5-53.7); HEMOGLOBIN 11.8 G/DL (12.5-16.3); LYMPHOCYTES % 26 % (24-44); MEAN CORPUSCULAR HEMOGLOBIN 25.7 PG (27-31.2); MEAN CORPUSCULAR HGB CONC 32.3 % (32-36); MEAN CORPUSCULAR VOLUME 79.6 FL (81-97); PLATELET COUNT 274 X10'3 (130-400); RED BLOOD COUNT 4.58 X10'6 (4.30-5.90); RED CELL DISTRIBUTION WIDTH 15.6 % (11-16); SEGMENTED NEUTROPHILS % 59 % (36-66); WHITE BLOOD COUNT 5.7 X10'3 (4.5-11.0)
[2024-01-15 10:54] LABS: BASOPHILS # (AUTO) 0.1 X10'3 (0-1); BASOPHILS % 2 % (0-2); EOSINOPHILS # (AUTO) 0.2 X10'3 (0-0.9); EOSINOPHILS % (AUTO) 3 % (0-5); LYMPHOCYTES # (AUTO) 1.5 X10'3 (0.6-4.1); MONOCYTES # (AUTO) 0.6 X10'3 (0-0.9); MONOCYTES % 10 % (0-12); NEUTROPHILS # (AUTO) 3.4 X10'3 (>=1.4)
== END 2024-01-15 15:20 | disposition home or self-care (01) ==
LOC: SSTAY O 06:13
PROVIDERS: ATTEND Internal Medicine Cardiovascular Disease
DX: I44.7 Left bundle-branch block, unspecified (principal); I11.0 Hypertensive heart disease with heart failure; I50.21 Acute systolic (congestive) heart failure; I42.0 Dilated cardiomyopathy; I25.119 Atherosclerotic heart disease of native coronary artery with unspecified angina pectoris; I10 Essential (primary) hypertension; E78.2 Mixed hyperlipidemia; Z95.5 Presence of coronary angioplasty implant and graft
CPT/HCPCS: 33225; 33249; 36415; 71045; 80048; 83735; 85025; 85610; 93005; 93458; 93641; 99152; 99153; A4314; A4565; A6258; C1725; C1760; C1882; C1894; C1896; C1900; J1200; J1644; J2001; J2250; J3010; J3370; J3490; J7030; J7040; Q9967; Z7610; 36217; C1895; C1898

== ENCOUNTER 2025-02-19 14:43 | Emergency (ER) | payer MEDICARE, OTHER ==
[~2025-02-19] VITALS: Ht 182.9 cm; Wt 94.0 kg
[~2025-02-19 14:43] MED LIST changes: +ACET-864 PO; -AMLO-888 PO; -BIFI4CAP PO; +CARV3.122 PO; -CHOL4PAC PO; -DIPH-689 PO; +DUTA0.5C40 PO; +EMPA10TA PO; +ESZO1TAB13 PO; +FERR-39 PO; -LOSA50TA64 PO; +MULT-1085 PO; -MULT-687 PO; -PANT-47 PO; +SACU1TAB PO; -TEST5GEL2 TOP; +Testosterone TOP
[2025-02-19 14:48] VITALS: TEMP 97.5
--- NOTE | 2025-02-19 15:13 | RADIOLOGY REPORT ---
DI CHEST,SINGLE VIEW, HISTORY: CP COMPARISON: DI CHEST,SINGLE VIEW on DOS: 01/15/24, CHEST,SINGLE VIEW on DOS: 10/30/21, CHEST,TWO VIEWS on DOS: 07/01/20 DI CHEST,SINGLE VIEW on DOS: 01/15/24, CHEST,SINGLE VIEW on DOS: 10/30/21, CHEST,TWO VIEWS on DOS: 07/01/20 TECHNICAL DATA: 1 view of the chest was obtained. FINDINGS: Lines and tubes: A cardiac pacer is seen. Cardiomediastinal silhouette: normal Pulmonary vasculature: normal Lung expansion: normal Lung airspace: normal Lung interstitium: normal Pleura: normal Pneumothorax: no Bones: Unremarkable Other: no IMPRESSION: No acute intrathoracic abnormality.
--- NOTE | 2025-02-19 15:20 | Physician Documentation ---
History of Present Illness General Chief Complaint: Shortness of Breath Stated Complaint: SOB Time Seen by MD: 15:16 Primary Medical Doctor: DARRELL Egan Mode of Arrival: EMS, Stretcher History of Present Illness Initial Comments Patient is an 84-year-old male with a history of coronary artery disease with multiple coronary stents, colon cancer, nephrolithiasis and chronic kidney disease who presents with shortness of breath. Medication Reconciliation Allergies: Coded Allergies: cephalexin (Unverified Allergy, Mild, 06/30/20) Scheduled Acetaminophen/Dp-Hydram Hcl (Tylenol P.m. Ex-Str Caplet), 1 TAB PO HS, (Reported) Carvedilol (Carvedilol), 1 TAB PO BID, (Reported) Clopidogrel Bisulfate (Clopidogrel), 1 TABLET PO DAILY, (Reported) Dutasteride* (Avodart*), 1 CAP PO DAILY, (Reported) Empagliflozin (Jardiance), 1 TAB PO DAILY, (Reported) Eszopiclone (Eszopiclone), 1 TAB PO HS, (Reported) Ferrous Sulfate (Ferrous Sulfate), 1 TAB PO DAILY, (Reported) Multivitamin (Multi Vitamin Daily), 1 TAB PO DAILY, (Reported) Rosuvastatin Calcium* (Crestor*), 1 TAB PO DAILY, (Reported) Sacubitril/Valsartan (Entresto 24 mg-26 mg Tablet), 1 TAB PO BID, (Reported) [Testosterone], 200 MG TOP DAILY, (Reported) Scheduled PRN Nitroglycerin SL* (Nitrostat SL*), 1 TAB SL Q5MIN PRN for Chest pain Q5min PRNx3-call MD, (Reported) Past Medical History Past Medical History: *CARDIOVASCULAR*, High Cholesterol, Hypertension, Kidney Stones, Chronic Pain, Chronic Back Pain Past Surgical History: angioplasty, orthopedic surgeries Other Past Surgical History: Fundal plycation Smoking: Non-Smoker Alcohol Use: None Drug Use: none Lives with: Family Lives In: Home Occupation: retired Physical Exam Physical Exam Vital Signs: Temperature: 97.5, Source: Oral, Heart Rate: 78, Respiratory Rate: 16, BP: 130/64, Pulse Oximetry: 99, Weight: 94.000 Oxygen Flow Rate: 0 Progress Results/Orders Results/Orders Orders - NATHAN AMAYA MD Chest,Single View (02/19/25 14:48) Monitor (02/19/25 14:48) Saline Lock (02/19/25 14:48) Oxygen (02/19/25 14:48) Hs Troponin I W Calculations (02/19/25 17:48) Completed NATHAN Hamilton MD Chest,Single View (02/19/25 14:48) Cbc/Diff (02/19/25 14:48) BMP (02/19/25 14:48) PBNP (02/19/25 14:48) Electrocardiogram (02/19/25 14:48) Hs Troponin I W Calculations (02/19/25 14:48) Hs Troponin I W Calculations (02/19/25 16:48) Vital Signs 02/19/25 02/19/25 02/19/25 14:48 14:56 16:16 Temp 97.5 Pulse 78 75 Resp 16 16 12 B/P (MAP) 130/64 119/55 (76) Pulse Ox 99 97 O2 Flow Rate 0 0 Laboratory Tests Test 02/19/25 14:59 02/19/25 16:43 White Blood Count 6.6 Red Blood Count 4.68 L Hemoglobin 13.4 L Hematocrit 40.1 L Mean Corpuscular Volume 85.7 Mean Corpuscular Hemoglobin 28.5 Mean Corpuscular Hemoglobin Concent 33.3 Red Cell Distribution Width 14.1 Platelet Count 156 Mean Platelet Volume 7.7 Neutrophils (%) (Auto) 65.8 Lymphocytes (%) (Auto) 23.4 Monocytes (%) (Auto) 7.8 Eosinophils (%) (Auto) 1.8 Basophils (%) (Auto) 1.2 H Neutrophils # (Auto) 4.4 Lymphocytes # (Auto) 1.5 Monocytes # (Auto) 0.5 Eosinophils # (Auto) 0.1 Basophils # (Auto) 0.1 CBC Comment Sodium Level 146 H Potassium Level 4.3 Chloride Level 112 H Carbon Dioxide Level 26.5 Anion Gap 8 Blood Urea Nitrogen 24 H Creatinine 1.73 H Estimated GFR/1.73 m2 38 BUN/Creatinine Ratio 13.9 Glucose Level 109 H Calcium Level 7.8 L Troponin I High Sensitivity 15 13 Pro-B-Type Natriuretic Peptide 1907 H Albumin 3.2 L Chemistry Comments Troponin I High Sens Percent Delta 13 Troponin I Hi Sens Absolute Change -2 Departure Referrals: NO PRIMARY CARE PROVIDER (PCP) NATHAN AMAYA MD Feb 19, 2025 15:20
[2025-02-19 15:24] LABS: MEAN PLATELET VOLUME 7.7 FL (7.4-10.4); RED CELL DISTRIBUTION WIDTH 14.1 % (11.5-14.5)
[2025-02-19 15:49] LABS: CREATININE 1.73 MG/DL (0.60-1.10); PRO BRAIN NATRIURETIC PEPTIDE 1907 PG/ML (0-450); eCRCL 34 ML/MIN; eGFR 38 ML/MIN
--- NOTE | 2025-02-19 15:53 | ELECTROCARDIOGRAPH REPORT ---
[facility] Test Date: 2025-02-19 Test Time: 14:50:24 Pat Name: TANK PAINTING Department: [facility]-ER Patient ID: [facility]-[id number] Room: Gender: M Network Designer: : 1940 Requested By: NATHAN AMAYA Order Number: [id number] Reading MD: Dr. Sanchez Katz Measurements Intervals [place] Rate: 73 P: 93 DE: 133 QRS: 260 QRSD: 142 T: 75 QT: 448 QTc: 494 Interpretive Statements A-V dual-paced complexes w/ some inhibition No further analysis attempted due to paced rhythm Electronically Signed On 02-19-2025 19:18:[address] Sanchez Katz Please click the below link to view image of tracing.
[2025-02-19 15:58] LABS: TOTAL CARBON DIOXIDE 26.5 MMOL/L (24-32)
--- NOTE | 2025-02-19 18:57 | Physician Documentation ---
History of Present Illness ~ Chief Complaint: Shortness of Breath Stated Complaint: SOB Time Seen by MD: 18:14 Primary Medical Doctor: DARRELL Egan Mode of Arrival: EMS, Stretcher HPI Patient presents to the emergency room with chief complaint of shortness of breath. Patient states he normally gets short of breath with minimal activity however today he is feeling tired therefore he sat down while he is sitting down he began to feel short of breath as if he could not get enough air. He also describes some degree of discomfort in his chest however nothing like he previous so he had with a heart attack. He has had a negative cardiac catheterization a proximally one year ago. Patient states that shortness of breath resolved shortly after arrival to the emergency room. He does have a pacemaker/defibrillator device placed by Dr. Cross and states that has recently interrogated and was told that it was okay. He denies any palpitations during episode. Medication Reconciliation Allergies: Coded Allergies: cephalexin (Unverified Allergy, Mild, 06/30/20) Scheduled Acetaminophen/Dp-Hydram Hcl (Tylenol P.m. Ex-Str Caplet), 1 TAB PO HS, (Reported) Carvedilol (Carvedilol), 1 TAB PO BID, (Reported) Clopidogrel Bisulfate (Clopidogrel), 1 TABLET PO DAILY, (Reported) Dutasteride* (Avodart*), 1 CAP PO DAILY, (Reported) Empagliflozin (Jardiance), 1 TAB PO DAILY, (Reported) Eszopiclone (Eszopiclone), 1 TAB PO HS, (Reported) Ferrous Sulfate (Ferrous Sulfate), 1 TAB PO DAILY, (Reported) Multivitamin (Multi Vitamin Daily), 1 TAB PO DAILY, (Reported) Rosuvastatin Calcium* (Crestor*), 1 TAB PO DAILY, (Reported) Sacubitril/Valsartan (Entresto 24 mg-26 mg Tablet), 1 TAB PO BID, (Reported) [Testosterone], 200 MG TOP DAILY, (Reported) Scheduled PRN Nitroglycerin SL* (Nitrostat SL*), 1 TAB SL Q5MIN PRN for Chest pain Q5min PRNx3-call MD, (Reported) Past Medical History Past Medical History: *CARDIOVASCULAR*, High Cholesterol, Hypertension, Kidney Stones, Chronic Pain, Chronic Back Pain Past Surgical History: angioplasty, orthopedic surgeries Other Past Surgical History: Fundal plycation Alcohol Use: None Drug Use: none Lives with: Family Lives In: Home Occupation: retired Review of Systems ROS All review of systems negative except as per HPI Physical Exam Vital Signs: Temperature: 97.5, Source: Oral, Heart Rate: 76, Respiratory Rate: 10, BP: 137/52, Pulse Oximetry: 96, Weight: 94.000 Oxygen Flow Rate: 0 Physical Exam General: Patient is awake, alert, oriented x4 in no acute distress Head: Normocephalic and atraumatic. Eyes: Conjunctival normal. EOMI. PERRL. ENT: Mucous membranes moist. Neck: Supple, trachea is midline. Chest: Clear to auscultation bilaterally without rales, rhonchi, or wheezes. There is no accessory muscle use or retractions. Cardiac: RRR without murmurs, gallops, or rubs. Abd: Soft, nondistended, nontender, with normoactive bowel sounds. No guarding, rebound, or rigidity. Extremities: Normal strength. Normal range of motion. No deformities or edema. Neuro: Cranial nerves II-XII grossly intact. No focal neuro deficits. Progress Results/Orders Results/Orders Orders - PANTERA TERAN MD General Nursing Order (02/19/25 18:53) Vital Signs 02/19/25 02/19/25 02/19/25 02/19/25 14:48 14:56 16:16 18:00 Temp 97.5 Pulse 78 75 76 Resp 16 16 12 10 B/P (MAP) 130/64 119/55 (76) 137/52 (80) Pulse Ox 99 97 96 O2 Flow Rate 0 0 02/19/25 20:38 Pulse 69 Resp 16 B/P (MAP) 142/77 (98) Pulse Ox 97 O2 Flow Rate 0 Laboratory Tests Test 02/19/25 14:59 02/19/25 16:43 02/19/25 18:02 White Blood Count 6.6 Red Blood Count 4.68 L Hemoglobin 13.4 L Hematocrit 40.1 L Mean Corpuscular Volume 85.7 Mean Corpuscular Hemoglobin 28.5 Mean Corpuscular Hemoglobin Concent 33.3 Red Cell Distribution Width 14.1 Platelet Count 156 Mean Platelet Volume 7.7 Neutrophils (%) (Auto) 65.8 Lymphocytes (%) (Auto) 23.4 Monocytes (%) (Auto) 7.8 Eosinophils (%) (Auto) 1.8 Basophils (%) (Auto) 1.2 H Neutrophils # (Auto) 4.4 Lymphocytes # (Auto) 1.5 Monocytes # (Auto) 0.5 Eosinophils # (Auto) 0.1 Basophils # (Auto) 0.1 CBC Comment Sodium Level 146 H Potassium Level 4.3 Chloride Level 112 H Carbon Dioxide Level 26.5 Anion Gap 8 Blood Urea Nitrogen 24 H Creatinine 1.73 H Estimated GFR/1.73 m2 38 BUN/Creatinine Ratio 13.9 Glucose Level 109 H Calcium Level 7.8 L Troponin I High Sensitivity 15 13 13 Pro-B-Type Natriuretic Peptide 1907 H Albumin 3.2 L Chemistry Comments Troponin I High Sens Percent Delta 13 0 Troponin I Hi Sens Absolute Change -2 0 EKG/XRAY/CT/US/VASC/MRI EKG : Additional Comment EKG interpreted by myself shows time of 14 50, rate 79, paced rhythm. No further analysis secondary to paced rhythm aside from multiple PVCs Chest X-Ray : Additional Comments Exam: CHEST,SINGLE VIEW DI CHEST,SINGLE VIEW, HISTORY: CP COMPARISON: DI CHEST,SINGLE VIEW on DOS: 01/15/24, CHEST,SINGLE VIEW on DOS: 10/30/21, CHEST,TWO VIEWS on DOS: 07/01/20 DI CHEST,SINGLE VIEW on DOS: 01/15/24, CHEST,SINGLE VIEW on DOS: 10/30/21, CHEST,TWO VIEWS on DOS: 07/01/20 TECHNICAL DATA: 1 view of the chest was obtained. FINDINGS: Lines and tubes: A cardiac pacer is seen. Cardiomediastinal silhouette: normal Pulmonary vasculature: normal Lung expansion: normal Lung airspace: normal Lung interstitium: normal Pleura: normal Pneumothorax: no Bones: Unremarkable Other: no IMPRESSION: No acute intrathoracic abnormality. Medical Decision Making Findings Patient presents to the emergency room with chief complaint of shortness of breath that has since resolved. Differentials include but are not limited to pneumonia, pneumothorax, panic attack, pulmonary embolism, CHF exacerbation, ACS therefore emergent labs and imaging indicated. Labs reassuring for troponins negative. Patient's defibrillator interrogated with no abnormalities. Patient does describe a vague chest discomfort but that has considered atypical. Patient does have an elevated heart score of four however given his fairly recent cardiac catheterization atypical presentation he had not feel this represents ACS. Patient feels safe for discharge. Possible panic attack. Departure Disposition: HOME / SELF CARE / HOMELESS Impression: Primary Impression: Difficulty breathing Condition: Improved Discharge Instructions: Shortness of Breath, Adult, [id number] Referrals: NO PRIMARY CARE PROVIDER (PCP) Signature Scribe Signature: No scribe Attestation: The note accurately reflects work and decisions made by me.Pantera Teran MD 02/19/25 20:48 PANTERA TERAN MD Feb 19, 2025 18:57
[2025-02-19 20:52] VITALS: BP 142/77; PULSE 73; RESP 16; O2SAT 96
== END 2025-02-19 21:05 | disposition home or self-care (01) ==
LOC: ER 14:44
DX: R06.02 Shortness of breath (principal); E78.00 Pure hypercholesterolemia, unspecified; I10 Essential (primary) hypertension; Z87.440 Personal history of urinary (tract) infections; Z88.1 Allergy status to other antibiotic agents
CPT/HCPCS: 36415; 71045; 80048; 83880; 84484; 85025; 93005; 99285